=== PATIENT | female | born 1940 | race Caucasian/White ===

== ENCOUNTER 2018-12-20 17:26 | Emergency (ER) | payer BC, OTHER ==
[2018-12-20 18:10] VITALS: BP 138/64
--- NOTE | 2018-12-20 19:22 | UC ---
Respiratory Complaint HPI - HPI Summary HPI Summary: 13 days of dry cough, worse at night. nothing makes it better. denies sick contact. Had 102F fever on first night. Denies any other symptoms. - History of Current Complaint Chief Complaint: UCRespiratory Stated Complaint: DRY COUGH,ITCHY THROAT,CONGESTION Time Seen by Provider: 12/20/18 18:26 Onset/Duration: Gradual Onset, Lasting Days Pain Intensity: 0 - Allergies/Home Medications Allergies/Adverse Reactions: Allergies Allergy/AdvReac Type Severity Reaction Status Date / Time No Known Allergies Allergy Verified 12/20/18 17:59 Home Medications: Home Medications Ibuprofen [Advil] 200 mg PO BEDTIME PRN 12/20/18 [History Confirmed 12/20/18] PMH/Surg Hx/FS Hx/Imm Hx Previously Healthy: Yes - Surgical History Surgical History: Yes Surgery Procedure, Year, and Place: HYSTERECTOMY. CHOLECYSTECTOMY--1976. [facility] SX - Family History Known Family History: Positive: Diabetes - Social History Alcohol Use: None Substance Use Type: None Smoking Status (MU): Never Smoked Tobacco - Immunization History Most Recent Tetanus Shot: 01/08/16 Review of Systems All Other Systems Reviewed And Are Negative: Yes Constitutional: Positive: Fever. Negative: Chills, Fatigue Skin: Negative: Rash ENT: Positive: Ear Ache. Negative: Sore Throat, Sinus Congestion Respiratory: Positive: Cough - dry. Negative: Shortness Of Breath, Other - wheezing Cardiovascular: Positive: Negative - denies PND as well Gastrointestinal: Negative: Vomiting, Diarrhea Musculoskeletal: Negative: Myalgia Neurological: Negative: Headache Physical Exam Triage Information Reviewed: Yes Appearance: Well-Appearing Vital Signs: Initial Vital Signs Temp 98.1 F 12/20/18 18:01 Pulse 61 12/20/18 18:01 Resp 19 12/20/18 18:01 BP 138/64 12/20/18 18:01 Pulse Ox 100 12/20/18 18:01 Vital Signs Reviewed: Yes Eyes: Positive: Conjunctiva Clear ENT: Positive: Pharynx normal, TMs normal, Uvula midline Neck: Positive: Supple, Nontender, No Lymphadenopathy. Negative: Nuchal Rigidity Respiratory Exam: Normal - but coughing during visit--dry Cardiovascular Exam: Normal Neurological: Positive: Alert Respiratory Course/Dx - Course Course Of Treatment: Dry cough; sub acute w/ good O2 and no resp distress or abnormal lung sounds. She has tried meds otc w/ no relief. Do not think this is bacterial source but will cover possibility. Also rx'd albuterol to help w/ airways. Offered steroid, tylenol w/ codeine and CXR but pt declined. NOt thought to be cardiac. She was instructed to go to ED if sob or worsening develops. - Differential Dx/Diagnosis Differential Diagnosis/HQI/PQRI: Asthma, Bronchitis Provider Diagnosis: Bronchitis Discharge - Sign-Out/Discharge Documenting (check all that apply): Patient Departure All imaging exams completed and their final reports reviewed: No Studies - Discharge Plan Condition: Good Disposition: HOME Prescriptions: Albuterol HFA INHALER* [Ventolin HFA Inhaler*] 2 puff INH Q4H PRN #1 mdi PRN Reason: Cough Azithromycin TAB* [Zithromax TAB (Z-FAREED) 250 mg #6 tabs] 2 tab PO .TODAY, THEN 1 DAILY #1 fareed Patient Education Materials: Chronic Cough (ED) Referrals: Dereje Martinez MD [Primary Care Provider] - Additional Instructions: if no improvement please follow up with your pcp. - Billing Disposition and Condition Condition: GOOD Disposition: Home - Attestation Statements Provider Attestation: I was available for consult. This patient was seen by the SAMANTHA. The patient was not presented to, seen by, or examined by me. EK
== END 2018-12-20 19:31 | disposition home or self-care (01) ==
LOC: UCCORT 17:26
DX: J40 Bronchitis, not specified as acute or chronic (principal)
CPT/HCPCS: 99212; G0463

== ENCOUNTER 2019-09-28 15:33 | Emergency (ER) | payer BC ==
[2019-09-28 16:06] VITALS: BP 124/63
--- NOTE | 2019-09-28 16:38 | UC ---
Hand/Wrist HPI - HPI Summary HPI Summary: 79-year-old female presents with complaints of left pinky finger pain and swelling. States approximately one month ago she tripped and fell causing a hyperextension injury to the finger. States she has been applying ice and ibuprofen as needed with some improvement in symptoms however with the pain and swelling have persisted. Denies any numbness or tingling. - History Of Current Complaint Chief Complaint: UCUpperExtremity Stated Complaint: LEFT PINKY FINGER INJURY Time Seen by Provider: 09/28/19 15:57 Hx Obtained From: Patient Pain Intensity: 0 - Allergies/Home Medications Allergies/Adverse Reactions: Allergies Allergy/AdvReac Type Severity Reaction Status Date / Time No Known Allergies Allergy Verified 09/28/19 16:01 Home Medications: Home Medications Calcium Carb, Citrate/Vit D3 [Calcium + D3 ER Tablet] 1 tab DAILY 09/28/19 [ History Confirmed 09/28/19] PMH/Surg Hx/FS Hx/Imm Hx Previously Healthy: Yes - Denies significant PMH - Surgical History Surgical History: Yes Surgery Procedure, Year, and Place: HYSTERECTOMY. CHOLECYSTECTOMY--1976. [facility] SX - Family History Known Family History: Positive: Diabetes - Social History Occupation: Employed Full-time, Retired Lives: With Family Alcohol Use: None Substance Use Type: None Smoking Status (MU): Never Smoked Tobacco - Immunization History Most Recent Tetanus Shot: 01/08/16 Review of Systems All Other Systems Reviewed And Are Negative: Yes Constitutional: Positive: Negative Skin: Positive: Bruising Respiratory: Positive: Negative Cardiovascular: Positive: Negative Gastrointestinal: Positive: Negative Genitourinary: Positive: Negative Motor: Negative: Weakness Neurovascular: Negative: Decreased Sensation Musculoskeletal: Positive: Arthralgia - See HPI. Negative: Decreased ROM Neurological: Positive: Negative Physical Exam - Summary Physical Exam Summary: GENERAL APPEARANCE: Alert and cooperative older adult female who appears to be in no acute distress. CARDIAC: Normal S1 and S2. No S3, S4 or murmurs. Rhythm is regular. There is no peripheral edema, cyanosis or pallor. Extremities are warm and well perfused. Capillary refill is less than 2 seconds. Peripheral pulses intact. LUNGS: Clear to auscultation without rales, rhonchi, wheezing or diminished breath sounds. ABDOMEN: Positive bowel sounds. Soft, nondistended, nontender. No guarding or rebound. No masses or hepatosplenomegally. MUSKULOSKELETAL: Normal muscular development. Normal gait. EXTREMITIES: Tenderness with palpation to the PIP joint of the left pinky finger with mild edema. No gross deformity, erythema, or ecchymosis noted. Full ROM. Circulation and sensation intact. SKIN: Skin normal color, texture and turgor. Triage Information Reviewed: Yes Vital Signs: Initial Vital Signs Temp 98.4 F 09/28/19 16: Pulse 61 09/28/19 16:01 Resp 16 09/28/19 16:01 BP 124/63 09/28/19 16:01 Pulse Ox 100 09/28/19 16:01 Vital Signs Reviewed: Yes Diagnostics - Radiology No standard instances Radiology Interpretation Completed By: Radiologist Summary of Radiographic Findings: Order Information: FINGER LEFT SMALL. Indication: Fall, finger injury. 3 views of the left fifth digit demonstrate no fracture. Erosive changes are noted at the proximal end of the proximal phalanx of the fifth digit. No fracture is identified. IMPRESSION: Erosive changes at the fifth metatarsophalangeal joint. No fracture is noted. Hand/Wrist Course/Dx - Course Course Of Treatment: 79-year-old female presents with complaints of left pinky finger pain and swelling. States approximately one month ago she tripped and fell causing a hyperextension injury to the finger. States she has been applying ice and ibuprofen as needed with some improvement in symptoms however with the pain and swelling have persisted. Denies any numbness or tingling. Afebrile. Vital signs stable. Patient had tenderness with palpation to the PIP joint of the left pinky finger with mild edema. No gross deformity, erythema, or ecchymosis noted. Full ROM. Circulation and sensation intact. X-ray showed rosive changes are noted at the proximal end of the proximal phalanx of the fifth digit but no acute fracture. Reviewed results with the patient. Recommending continued conservative treatment. She was placed in a finger splint by the RN. She is to follow-up with her primary care provider or with orthopedic surgery in 5-7 days if symptoms are not improving. Anticipatory guidance and warning symptoms are reviewed with the patient. Verbalizes understanding and agrees with plan of care. - Differential Dx/Diagnosis Differential Diagnosis/HQI/PQRI: Contusion, Dislocation, Fracture, Sprain Provider Diagnosis: Injury of left little finger Discharge ED - Sign-Out/Discharge Documenting (check all that apply): Patient Departure All imaging exams completed and their final reports reviewed: Yes - Discharge Plan Condition: Stable Disposition: HOME Patient Education Materials: Finger Sprain (ED) Referrals: Dereje Martinez MD [Primary Care Provider] - 5 Days (If no improvement in symptoms.) Rj Ayala MD [Medical Doctor] - Additional Instructions: The x-ray performed in the clinic today showed no evidence of a fracture. Rest the hand as much as possible. Use the splint that was applied in the clinic today until you are pain free. You may remove to shower but should wear at all other times. Take acetaminophen (Tylenol) according to directions as needed for pain. Follow up with your primary care provider or orthopedic surgery in 5-7 days if symptoms do not improve. Seek immediate medical attention if you have severe pain not managed with pain medication, develop numbness or tingling in the finger, or have any worsening of symptoms. - Billing Disposition and Condition Condition: STABLE Disposition: Home
== END 2019-09-28 17:47 | disposition home or self-care (01) ==
LOC: UCCORT 15:33
DX: S69.92XA Unspecified injury of left wrist, hand and finger(s), initial encounter (principal); M25.842 Other specified joint disorders, left hand; W01.0XXA Fall on same level from slipping, tripping and stumbling without subsequent striking against object, initial encounter; Y92.9 Unspecified place or not applicable
CPT/HCPCS: 73140; 99211; G0463